=== PATIENT | female | born 1995 ===

== ENCOUNTER 2021-08-23 04:02 | Inpatient (IN) | payer OTHER ==
[2021-08-23] MEDS: LACTATED RINGERS 1,000 ML IV SCH ×2 (04:40→07:03)
[2021-08-23] MEDS ORDERED: METOCLOPRAMIDE 10 MG/2 ML INJ IV ONE (04:55)
[2021-08-23] MEDS ORDERED: FAMOTIDINE 20 MG/2 ML INJ IV ONE ×2 (04:55→07:40)
[2021-08-23] MEDS ORDERED: BICITRA ORAL LIQD 30ML PO ONE (04:55)
[2021-08-23] MEDS ORDERED: OXYTOCIN DRIP 30 UNITS/500 ML BAG IV SCH (05:00)
[2021-08-23 05:10] LABS: Basophils # (Auto) 0.1 K/mm3 (0.0-0.1); Basophils % (Auto) 0.7 % (0.0-1.8); Eosinophils % (Auto) 0.5 % (0.0-4.3); Hematocrit 40.8 % (30.3-42.9); Hemoglobin 13.6 gm/dl (10.1-14.3); Lymphocytes # (Auto) 2.5 K/mm3 (1.2-5.4); Lymphocytes % (Auto) 26.4 % (13.4-35.0); Mean Corpuscular HGB Conc 33 % (30-34); Mean Corpuscular Volume 89 fl (79-97); Monocytes # (Auto) 0.4 K/mm3 (0.0-0.8); Monocytes % (Auto) 4.2 % (0.0-7.3); Platelet Count 229 K/mm3 (140-440); Red Blood Count 4.58 M/mm3 (3.65-5.03); Red Cell Distribution Width 15.3 % (13.2-15.2)
[2021-08-23] MEDS ORDERED: BUPIVACAINE/PF (0.5%) 5 MG/1 ML 30 ML VIAL INFILTRATI ONE (07:25)
[2021-08-23] MEDS ORDERED: NalbUPHINE 10 MG/1 ML INJ IV PRN (07:30)
[2021-08-23] MEDS ORDERED: HYDROmorphone 1 MG/1 ML INJ IV PRN (07:30)
[2021-08-23] MEDS ORDERED: diphenhydrAMINE 50 MG/ML VIAL IV PRN (07:30)
[2021-08-23] MEDS ORDERED: dexAMETHasone 20 MG/5 ML VIAL ONE (07:31)
[2021-08-23] MEDS ORDERED: KETOROLAC 30 MG/1 ML INJ ONE (07:31)
[2021-08-23] MEDS ORDERED: ONDANSETRON 4 MG/2 ML INJ ONE (07:31)
[2021-08-23] MEDS ORDERED: BICITRA ORAL LIQD 30ML ONE (07:40)
[2021-08-23] MEDS ORDERED: METOCLOPRAMIDE 10 MG/2 ML INJ ONE (07:40)
[2021-08-23] MEDS ORDERED: ceFAZolin/Water 2 GM/20 ML 2 GM/20 ML SYRINGE IV ONE (07:42)
[2021-08-23] MEDS ORDERED: NALOXONE 0.4 MG/1 ML INJ IV PRN ×2 (08:00→12:00)
[2021-08-23] MEDS ORDERED: ONDANSETRON 4 MG/2 ML INJ IV PRN (08:00)
[2021-08-23] MEDS ORDERED: PROMETHAZINE 25 MG TAB PO PRN (08:00)
[2021-08-23] MEDS ORDERED: PROMETHAZINE 25 MG RECT SUPP PR PRN (08:00)
[2021-08-23] MEDS ORDERED: PHENYLEPHRINE/NS 1,000 MCG/10 ML SYRINGE (OR USE) IV ONE (08:24)
[2021-08-23] MEDS ORDERED: ePHEDrine SULFATE 50 MG/1 ML INJ ONE (08:34)
--- NOTE | 2021-08-23 09:53 | Anesthesia Day of Surgery ---
Anesthesia Day of Surgery - Day of Surgery Patient Examined: Yes Patient H&P Reviewed: Yes Patient is NPO: Yes Beta Blockers: No Cardiac Clearance: No Pulmonary Clearance: No Alin's Test: N/A
--- NOTE | 2021-08-23 09:53 | Anesthesia Consultation ---
Anesthesia Consult and Med Hx Date of service: 08/23/21 - Airway Anesthetic Teeth Evaluation: Good ROM Head & Neck: Adequate Mental/Hyoid Distance: Adequate Mallampati Class: Class I Intubation Access Assessment: Good - Pulmonary Exam CTA: Yes - Cardiac Exam Cardiac Exam: RRR - Pre-Operative Health Status ASA Pre-Surgery Classification: ASA2 Proposed Anesthetic Plan: Spinal Nerve Block: TAP - Pulmonary Hx Smoking: No Hx Asthma: No Hx Sleep Apnea: No - Cardiovascular System Hx Hypertension: No Hx Heart Attack/AMI: No Hx Angina: No - Central Nervous System Hx Seizures: No Hx Psychiatric Problems: No - Gastrointestinal Hx Gastroesophageal Reflux Disease: No - Endocrine Hx Renal Disease: No Hx Liver Disease: No Hx Insulin Dependent Diabetes: No Hx Non-Insulin Dependent Diabetes: No Hx Hypothyroidism: No Hx Hyperthyroidism: No - Hematic Hx Anemia: Yes Hx Sickle Cell Disease: No - Other Systems Hx Alcohol Use: No - Additional Comments Anesthesia Medical History Comments: previous c/s
--- NOTE | 2021-08-23 09:55 | Progress Note ---
Spinal Anesthesia Block - Spinal Anesthesia Block Start Time: 08:15 Stop Time: 08:25 Performed by:: IGLESIA DOTY Procedure: Spinal anesthesia block is being performed for [c/s]. H&P, labs have been reviewed. Patient's questions and concerns have been answered. Informed consent has been performed. Timeout has was performed. Patient in sitting position on side of bed. Sterile prep and drape was performed. 3 mL 1% lidocaine skin wheal at L [3]-L [4]. Needle introducer advanced. 25-gauge spinal needle advanced, [+] CSF [-] blood. [Marcaine 10mg and Precedex 5mcg] Spinal dose was given. All needles removed. Patient tolerated procedure well.
--- NOTE | 2021-08-23 10:46 | Post Anesthesia Evaluation ---
- Post Anesthesia Evaluation Patient Participated: Yes Airway Patent: Yes Stable Respiratory Function: Yes Nausea/Vomiting: No Temp > 96.8F: Yes Pain Manageable: Yes Adequeate Hydration: Yes Anesthesia Complications: No Block Receding Appropriately: Yes Patient on Ventilator: No
--- NOTE | 2021-08-23 11:11 | History and Physical Report ---
History of Present Illness Date of examination: 08/23/21 Date of admission: 08/23/21 07:26 Chief complaint: previous c/sectionx1 at term for elective repeat section Past History Past Medical History: no pertinent history, other Past Surgical History: section Family/Genetic History: none Social history: no significant social history - Obstetrical History Expected Date of Delivery: 08/24/21 Actual Gestation: 39 Week(s) 6 Day(s) : 3 Para: 2 Medications and Allergies Allergies Allergy/AdvReac Type Severity Reaction Status Date / Time No Known Allergies Allergy Unverified 08/23/21 04:49 Active Meds: Active Medications Diphenhydramine HCl (Diphenhydramine 50 Mg/Ml Vial) 12.5 mg IV Q2H PRN PRN Reason: Itching Hydromorphone HCl (Hydromorphone 1 Mg/1 Ml Inj) 0.5 mg IV Q4H PRN PRN Reason: breakthrough pain > 7/10 Lactated Ringer's (Lactated Ringers) 1,000 mls @ 2,250 mls/hr IV PREOP SEN Stop: 08/24/21 05:27 Last Admin: 08/23/21 07:03 Dose: 2,250 mls/hr Documented by: Oxytocin/Sodium Chloride (Pitocin/Ns 30 Unit/500ml) 30 units in 500 mls @ 0 m ls/hr IV TITR SEN; Protocol Nalbuphine HCl (Nalbuphine 10 Mg/1 Ml Inj) 2.5 mg IV Q2H PRN PRN Reason: Itching Naloxone HCl (Naloxone 0.4 Mg/1 Ml Inj) 0.2 mg IV Q2MIN PRN PRN Reason: Res Rate </= 8 or 02 SAT < 92% Ondansetron HCl (Ondansetron 4 Mg/2 Ml Inj) 4 mg IV Q8H PRN PRN Reason: Nausea And Vomiting Promethazine HCl (Promethazine 25 Mg Tab) 25 mg PO Q6H PRN PRN Reason: Nausea And Vomiting Promethazine HCl (Promethazine 25 Mg Rect Supp) 25 mg MD Q6H PRN PRN Reason: Nausea And Vomiting Review of Systems All systems: negative (good movement, no CTX,LOF or VB) - Vital Signs Vital signs: Vital Signs Temp Pulse Resp BP Pulse Ox 98.2 F 67 12 115/74 100 12/01/21 04:26 08/23/21 04:26 08/23/21 04:26 08/23/21 04:26 08/23/21 04:26 Temp Pulse Resp BP Pulse Ox 98.2 F 97 H 12 122/74 97 08/23/21 04:26 08/23/21 10:37 08/23/21 04:26 08/23/21 10:06 08/23/21 10:37 - Physical Exam Breasts: Positive: deferred Cardiovascular: Regular rate Lungs: Positive: Clear to auscultation Abdomen: Positive: normal appearance, soft, normal bowel sounds Genitourinary (Female): Positive: normal external genitalia, normal perenium Vulva: both: normal Vagina: Positive: normal moisture Uterus: Positive: enlarged Adnexa: both: normal Extremities: Positive: normal Deep Tendon Reflex Grade: Normal +2 - Obstetrical FHR: category 1 Results Result Diagrams: 08/23/21 04:40 Abnormal lab results 08/23/21 Range/Units 04:40 RDW 15.3 H (13.2-15.2) % All other labs normal. Assessment and Plan NPO, office professional to OR for procedure informed consent Latoya Ramírez MD
--- NOTE | 2021-08-23 11:14 | Procedure Note ---
OB Delivery Note - Delivery Date of Delivery: 08/23/21 Surgeon: CALLIE ARROYO - Section Postop diagnosis: same section procedure: repeat low transverse Disposition: PACU Complications: none Narrative: Preop diagnosis: IUP at weeks Postop diagnosis: Same,delivered Procedure: Repeat low transverse section via Pfannenstiel incision Surgeon: Dr. Callie Arroyo Anesthesia spinal Complications none EBL 400 ml IV fluids 1200 mL Urine output 100 mL, clear Drains Ramsey to gravity Findings: Viable male with weight 2890gms and 8/9 , normal uterus tubes and ovaries bilaterally Procedure: Patient was consented in OB triage, taken to the operating room where she received excellent spinal anesthesia. She was then placed in the dorsal supine position with a leftward tilt. The abdomen was prepped and draped in a sterile fashion, and a timeout was verified. Adequate anesthesia was confirmed prior to the skin incision. A Pfannenstiel skin incision was made with a scalpel taken down to the underlying structures and the fascia was incised in the midline. The incision was extended laterally with curved Guevara scissors, the superior and inferior aspects of the fascial incisions were grasped with Dave clamps and the rectus muscles dissected sharply. The abdomen was entered bluntly in the midline carried down inferiorly with good visualization of the bladder. The vesicouterine peritoneum was tented with [place] forceps and incised in the midline with Metzenbaum scissors and the vesicouterine peritoneum taken down sharply. The uterine incision was then made sharply with a scalpel. The inferior and superior aspect of the uterine incisions were extended bluntly, the baby's head was delivered atraumatically. The remainder of the delivery was uncomplicated, no nuchal cord. The cord was clamped and cut and baby handed to waiting NICU team. An intact placenta with three-vessel cord delivered manually. The uterus was then cleared of all clots and debris and the uterus exteriorized. The uterine incision was closed in 2 layers of 0 vicryl with excellent hemostasis. The abdomen was then irrigated with warm normal saline and the uterus placed back into the abdomen atraumatically. A second look at the uterine incision assured hemostasis. The peritoneum was closed with 3-0 Vicryl, the rectus muscles approximated with 3-0 Vicryl, and the fascia closed with 0 Vicryl in the usual fashion. The subcuticular structures were closed with interrupted sutures of 3-0 Vicryl and the skin closed with 4-0 Monocryl. A pressure dressing was applied. All sponge needle and instrument counts were correct x2. There were no complications. Mom and baby stable to PACU. EBL 400 mL Latoya Arroyo MD
[2021-08-23] MEDS ORDERED: WITCH HAZEL/ GLYCERIN PAD TP PRN (12:00)
[2021-08-23] MEDS ORDERED: MORPHINE 2 MG/1 ML INJ IV PRN (12:00)
[2021-08-23] MEDS ORDERED: HYDROcodone/ACETAMINOPHEN 5-325 MG TAB PO PRN (12:00)
[2021-08-23] MEDS ORDERED: KETOROLAC 30 MG/1 ML INJ IV PRN (12:00)
[2021-08-23] MEDS ORDERED: oxyCODONE /ACETAMINOPHEN 5-325MG TAB PO PRN (12:00)
[2021-08-23] MEDS ORDERED: LANOLIN/ZINC/DIMETHICONE (LANSINOH) 7 GM TP PRN (12:00)
[2021-08-23] MEDS ORDERED: MORPHINE 4 MG/1 ML INJ IV PRN (12:00)
[2021-08-23] MEDS ORDERED: IBUPROFEN 600 MG TAB PO PRN (12:00)
[2021-08-23] MEDS: KETOROLAC 30 MG/1 ML INJ IV PRN ×2 (15:50→22:00)
[2021-08-24] MEDS: KETOROLAC 30 MG/1 ML INJ IV PRN (03:00)
[2021-08-24] MEDS ORDERED: TETANUS,DIPH,PERTUSS(ACELL) VACCINE 0.5 ML SYRINGE IM ONE (06:00)
[2021-08-24 08:19] LABS: Hemoglobin 9.1 gm/dl (10.1-14.3)
--- NOTE | 2021-08-24 11:05 | Progress Note ---
Assessment and Plan POD # 1 A: S/P Repeat LTCS Asymptomatic anemia P: Continue monitoring Fe prescribed Encourage ambulation D/C home tomm if stable Subjective - Subjective Date of service: 08/24/21 Principal diagnosis: s/p repeat LTCS Patient reports: appetite normal, voiding normally, pain well controlled, flatus, ambulating normally : doing well, bottle feeding Objective - Vital Signs Latest vital signs: Vital Signs Temp Pulse Resp BP BP Pulse Ox Pulse Ox 08/24/21 08:00 98 08/24/21 07:10 98.1 F 77 16 96/55 97 08/24/21 04:50 98.2 F 88 18 100/52 99 08/24/21 03:30 18 08/24/21 03:00 18 08/23/21 23:45 98.2 F 73 20 108/67 99 08/23/21 22:30 18 08/23/21 22:00 18 08/23/21 20:33 98.0 F 75 20 91/50 98 08/23/21 20:00 98 08/23/21 15:37 98.0 F 87 18 102/56 94/60 98 08/23/21 11:10 97.7 F 76 18 97/53 99 Intake and Output 08/23/21 08/24/21 08/24/21 22:59 06:59 14:59 Intake Total 960 120 240 Output Total 1750 Balance -790 120 240 Intake: Oral 480 120 240 Intake, Free Water 480 Output: Urine 1750 Indwelling Catheter 1750 Other: Total, Intake Amount 240 120 240 Total, Output Amount 400 # Voids Void 1 - Exam Breasts: Present: normal Abdomen: Present: normal appearance, soft, normal bowel sounds Vulva: both: normal Uterus: Present: normal, firm, fundal height below umbilicus Extremities: Present: normal Incision: Present: normal, dry, intact, dressed - Labs Labs: Abnormal lab results 08/24/21 Range/Units 07:47 Hgb 9.1 L D (10.1-14.3) gm/dl Hct 27.0 L D (30.3-42.9) %
[2021-08-24] MEDS: FERROUS SULFATE 325 MG TAB PO SCH ×2 (12:07→22:07)
[2021-08-24] MEDS: IBUPROFEN 800 MG TAB PO PRN ×2 (12:07→22:07)
[2021-08-25] MEDS ORDERED: FLU VACC QUAD 2021-22(6MOS UP)/PF 60 MCG/0.5 ML SYRINGE IM ONE (06:00)
[2021-08-25] MEDS: IBUPROFEN 800 MG TAB PO PRN ×2 (12:15→17:14)
[2021-08-25] MEDS: FERROUS SULFATE 325 MG TAB PO SCH ×2 (12:15→21:55)
--- NOTE | 2021-08-25 13:06 | Progress Note ---
Assessment and Plan POD#2 C/S with asymptomatic anemia 1. Consider discharge home later today or in the am 2. Routine care Plan of care discussed with and pt agrees. All questions encouraged and answered. Subjective Date of service: 08/25/21 Principal diagnosis: POD#2 C/S Interval history: Pt tolerates regular diet. Pt has passed flatus. Pain controlled with meds. Pt is bottle feeding baby. Vag bleed less than a period. Pt is voiding without difficulty. Objective - Constitutional Vitals: Vital Signs - 12hr 08/25/21 08/25/21 08:00 08:14 Temperature 98.1 F Pulse Rate 66 Respiratory 18 Rate Blood Pressure 97/51 O2 Sat by Pulse 94 Oximetry O2 Sat by Pulse 98 Oximetry [ Bilateral] General appearance: Present: no acute distress - Neck Neck: normal ROM - Respiratory Respiratory effort: normal - Breasts Breasts: deferred - Cardiovascular Rhythm: regular Extremities: No edema - Gastrointestinal General gastrointestinal: Present: soft, non-tender, other (Incision C/D/I with steristrips) - Integumentary Integumentary: warm, dry - Neurologic Neurologic: moves all extremities - Psychiatric Psychiatric: cooperative - Labs CBC & Chem 7: 08/24/21 07:47 Medications & Allergies - Medications Allergies/Adverse Reactions: Allergies No Known Allergies Allergy (Unverified 08/23/21 04:49) Home Medications: Home Medications Medication Instructions Recorded Confirmed Last Taken Type Ibuprofen [Motrin] 600 mg PO Q8H PRN #60 tablet 08/23/21 Unknown Rx oxyCODONE /ACETAMINOPHEN [Percocet 1 tab PO Q6HR PRN #20 tablet 08/23/21 U nknown Rx 5/325] Active Medications: Generic Name Dose Route Start Last Admin Trade Name Freq PRN Reason Stop Dose Admin Hydrocodone Bitart/Acetaminophen 1 each 08/23/21 12:00 Hydrocodone/Acetaminophen 5-325 Mg Tab PO Q6H PRN Pain, Moderate (4-6) Ferrous Sulfate 325 mg 08/24/21 10:00 08/25/21 12:15 Ferrous Sulfate 325 Mg Tab PO 325 mg BID SEN Administration Oxytocin/Sodium Chloride 30 units in 500 mls @ 0 mls/hr 08/23/21 05:00 Pitocin/Ns 30 Unit/500ml IV TITR SEN Protocol As Directed Ibuprofen 600 mg 08/23/21 12:00 Ibuprofen 600 Mg Tab PO Q6H PRN Pain, Mild (1-3) Ibuprofen 800 mg 08/23/21 12:00 08/25/21 12:15 Ibuprofen 800 Mg Tab PO 800 mg Q6H PRN Administration Pain, Moderate (4-6) Ketorolac Tromethamine 15 mg 08/23/21 12:00 Ketorolac 30 Mg/1 Ml Inj IV 08/28/21 11:59 Q6H PRN Pain, Mild (1-3) Ketorolac Tromethamine 30 mg 08/23/21 12:00 08/24/21 03:00 Ketorolac 30 Mg/1 Ml Inj IV 08/28/21 11:59 30 mg Q6H PRN Administration Pain, Moderate (4-6) Morphine Sulfate 2 mg 08/23/21 12:00 Morphine 2 Mg/1 Ml Inj IV Q4H PRN Pain, Moderate (4-6) Morphine Sulfate 4 mg 08/23/21 12:00 Morphine 4 Mg/1 Ml Inj IV Q4H PRN Pain , Severe (7-10) Multi-Ingredient Ointment 1 applic 08/23/21 12:00 Lanolin/Zinc/Dimethicone (Lansinoh) 7 Gm TP PRN PRN dryness/cracking Naloxone HCl 0.1 mg 08/23/21 12:00 Naloxone 0.4 Mg/1 Ml Inj IV Q2MIN PRN Res Rate </= 8 or 02 SAT < 92% Ondansetron HCl 4 mg 08/23/21 08:00 Ondansetron 4 Mg/2 Ml Inj IV Q8H PRN Nausea And Vomiting Oxycodone/Acetaminophen 1 tab 08/23/21 12:00 Oxycodone /Acetaminophen 5-325mg Tab PO Q6H PRN Pain, Moderate (4-6) Promethazine HCl 25 mg 08/23/21 08:00 Promethazine 25 Mg Tab PO Q6H PRN Nausea And Vomiting Promethazine HCl 25 mg 08/23/21 08:00 Promethazine 25 Mg Rect Supp DE Q6H PRN Nausea And Vomiting Sodium Chloride 10 ml 08/23/21 12:00 Sodium Chloride 0.9% 10 Ml Flush Syringe IV PRN PRN flush Witch Shahla/Glycerin 1 each 08/23/21 12:00 Witch Shahla/ Glycerin Pad TP PRN PRN Hemorrhoids/cleansing/soothing
--- NOTE | 2021-08-26 06:13 | Progress Note ---
Assessment and Plan POD#3 with asymptomatic anemia doing well 1. Discharge pt home to follow in 10days for wound check 2. All questions encouraged and answered Subjective Date of service: 08/26/21 Principal diagnosis: POD#3 C/S Interval history: pt has no complaints. pt denies pelvic pain, vag bleed minimal, pt is breast feeding and bottle feeding and voids without difficulty. pt has passed flatus Objective - Constitutional Vitals: Vital Signs - 12hr 08/25/21 08/26/21 20:00 00:41 Temperature 98.1 F Pulse Rate 72 Respiratory 20 Rate Blood Pressure 97/59 O2 Sat by Pulse 100 Oximetry O2 Sat by Pulse 98 Oximetry [ Bilateral] General appearance: Present: no acute distress - Respiratory Respiratory effort: normal - Breasts Breasts: normal - Cardiovascular Rhythm: regular Extremities: No edema - Gastrointestinal General gastrointestinal: Present: soft, non-tender - Genitourinary Female genitourinary: other (Fundus firm 2cm below umbilicus, incision C/D/I with steristrips, missing 2 strips; lochia scant) - Neurologic Neurologic: moves all extremities - Psychiatric Psychiatric: cooperative - Labs CBC & Chem 7: 08/24/21 07:47 Medications & Allergies - Medications Allergies/Adverse Reactions: Allergies No Known Allergies Allergy (Unverified 08/23/21 04:49) Home Medications: Home Medications Medication Instructions Recorded Confirmed Last Taken Type Ibuprofen [Motrin] 600 mg PO Q8H PRN #60 tablet 08/23/21 Unknown Rx oxyCODONE /ACETAMINOPHEN [Percocet 1 tab PO Q6HR PRN #20 tablet 08/23/21 Unknown Rx 5/325] Active Medications: Generic Name Dose Route Start Last Admin Trade Name Freq PRN Reason Stop Dose Admin Hydrocodone Bitart/Acetaminophen 1 each 08/23/21 12:00 Hydrocodone/Acetaminophen 5-325 Mg Tab PO Q6H PRN Pain, Moderate (4-6) Ferrous Sulfate 325 mg 08/24/21 10:00 08/25/21 21:55 Ferrous Sulfate 325 Mg Tab PO 325 mg BID SEN Administration Oxytocin/Sodium Chloride 30 units in 500 mls @ 0 mls/hr 08/23/21 05:00 Pitocin/Ns 30 Unit/500ml IV TITR SEN Protocol As Directed Ibuprofen 600 mg 08/23/21 12:00 Ibuprofen 600 Mg Tab PO Q6H PRN Pain, Mild (1-3) Ibuprofen 800 mg 08/23/21 12:00 08/25/21 17:14 Ibuprofen 800 Mg Tab PO 800 mg Q6H PRN Administration Pain, Moderate (4-6) Ketorolac Tromethamine 15 mg 08/23/21 12:00 Ketorolac 30 Mg/1 Ml Inj IV 08/28/21 11:59 Q6H PRN Pain, Mild (1-3) Ketorolac Tromethamine 30 mg 08/23/21 12:00 08/24/21 03:00 Ketorolac 30 Mg/1 Ml Inj IV 08/28/21 11:59 30 mg Q6H PRN Administration Pain, Moderate (4-6) Morphine Sulfate 2 mg 08/23/21 12:00 Morphine 2 Mg/1 Ml Inj IV Q4H PRN Pain, Moderate (4-6) Morphine Sulfate 4 mg 08/23/21 12:00 Morphine 4 Mg/1 Ml Inj IV Q4H PRN Pain , Severe (7-10) Multi-Ingredient Ointment 1 applic 08/23/21 12:00 Lanolin/Zinc/Dimethicone (Lansinoh) 7 Gm TP PRN PRN dryness/cracking Naloxone HCl 0.1 mg 08/23/21 12:00 Naloxone 0.4 Mg/1 Ml Inj IV Q2MIN PRN Res Rate </= 8 or 02 SAT < 92% Ondansetron HCl 4 mg 08/23/21 08:00 Ondansetron 4 Mg/2 Ml Inj IV Q8H PRN Nausea And Vomiting Oxycodone/Acetaminophen 1 tab 08/23/21 12:00 Oxycodone /Acetaminophen 5-325mg Tab PO Q6H PRN Pain, Moderate (4-6) Promethazine HCl 25 mg 08/23/21 08:00 Promethazine 25 Mg Tab PO Q6H PRN Nausea And Vomiting Promethazine HCl 25 mg 08/23/21 08:00 Promethazine 25 Mg Rect Supp MS Q6H PRN Nausea And Vomiting Sodium Chloride 10 ml 08/23/21 12:00 Sodium Chloride 0.9% 10 Ml Flush Syringe IV PRN PRN flush Witch Shahla/Glycerin 1 each 08/23/21 12:00 Witch Shahla/ Glycerin Pad TP PRN PRN Hemorrhoids/cleansing/soothing
--- NOTE | 2021-08-26 06:23 | Discharge Summary ---
Providers - Providers Date of Admission: 08/23/21 07:26 Date of discharge: 08/26/21 Attending physician: CALLIE ARROYO MD Primary care physician: CALLIE ARROYO MD Hospitalization Reason for admission: section Delivery: Procedure: repeat low transverse Incision: dry, intact complications: none Discharge diagnosis: IUP at term delivered [place] baby: male Pertinent studies: Labs Hospital course: Uncomplicated hospital course Condition at discharge: Good Disposition: 01 HOME / SELF CARE / HOMELESS - Discharge Diagnoses (1) Term delivered Status: Acute (2) Anemia Status: Acute Plan - Discharge Medications Prescriptions: Ibuprofen [Motrin] 600 mg PO Q8H PRN #60 tablet PRN Reason: Pain oxyCODONE /ACETAMINOPHEN [Percocet 5/325] 1 tab PO Q6HR PRN #20 tablet PRN Reason: Pain - Provider Discharge Summary Activity: routine, no sex for 6 weeks, no heavy lifting 4 weeks, no strenuous exercise Diet: routine Instructions: routine Additional instructions: Call your doctor immediately for: * Fever > 100.5 * Heavy vaginal bleeding ( >1 pad per hour) * Severe persistent headache * Shortness of breath * Reddened, hot, painful area to leg or breast * Drainage or odor from incision. * Keep incision clean and dry at all times and follow doctor's instructions regarding bathing/showering - Follow up plan Follow up: CALILE ARROYO MD [Primary Care Provider] - 7 Days Forms: [facility] Discharge Summary
[2021-08-26] MEDS: FERROUS SULFATE 325 MG TAB PO SCH (10:57)
[2021-08-26 16:44] VITALS: BP 108/70
== END 2021-08-26 11:57 | disposition home or self-care (01) | DRG 788 ==
LOC: TRG 04:02 → APU 04:06 → TRG 07:24 → APU 07:26 → OB 11:17
PROVIDERS: ADMIT Obstetrics & Gynecology; ATTEND Obstetrics & Gynecology
PROC: 10D00Z1 Extraction of Products of Conception, Low, Open Approach (ICD-10-PCS; principal; 2021-08-23)
PROC: 3E0234Z Introduction of Serum, Toxoid and Vaccine into Muscle, Percutaneous Approach (ICD-10-PCS; 2021-08-24)
DX: O34.211 Maternal care for low transverse scar from previous cesarean delivery (principal); Z3A.39 39 weeks gestation of pregnancy; Z37.0 Single live birth; O90.81 Anemia of the puerperium; Z23 Encounter for immunization
CPT/HCPCS: 36415; 59025; 85014; 85018; 85025; 86592; 86850; 86900; 86901; 99211; G0378; J3490; J7121; G0463; J1100; J1885; J2370; J2405; J2765; J7120; U0003